=== PATIENT | female | born 1985 | race Caucasian/White ===

== ENCOUNTER → 2023-08-02 09:18 | Outpatient (REF) | payer BC, SELFPAY | LOC: WDC 09:18 | PROVIDERS: ATTENDING PHYSICIAN Obstetrics & Gynecology; FAMILY PHYSICIAN Nurse Practitioner Family | DX: N63.12 Unspecified lump in the right breast, upper inner quadrant (principal) | CPT/HCPCS: 76642; 77062; 77066 ==

== ENCOUNTER → 2023-08-10 08:32 | Outpatient (REF) | payer BC, SELFPAY ==
--- NOTE | 2023-08-10 14:05 | OID.BR.INTR ---
OID Breast Navigator - Initial
- -
Date of Contact: 08/10/23
Met with patient. Patient given written information on navigator services and support services available at [facility]. Will follow up as needed per protocol.
== END ==
LOC: WDC 08:32
PROVIDERS: ATTENDING PHYSICIAN Obstetrics & Gynecology; FAMILY PHYSICIAN Nurse Practitioner Family
DX: N63.12 Unspecified lump in the right breast, upper inner quadrant (principal)
CPT/HCPCS: 88305; 19083; 77065; 88341; 88342; 88360; A4648

== ENCOUNTER → 2023-08-21 16:38 | Outpatient (REF) | payer BC, SELFPAY | LOC: MRI 3T 16:38 | PROVIDERS: ATTENDING PHYSICIAN Surgery; FAMILY PHYSICIAN Nurse Practitioner Family | DX: C50.411 Malignant neoplasm of upper-outer quadrant of right female breast (principal); Z17.0 Estrogen receptor positive status [ER+] | CPT/HCPCS: 77049; A9585 ==

== ENCOUNTER → 2023-08-25 08:39 | Outpatient (REF) | payer BC, SELFPAY | LOC: RAD 08:39 | PROVIDERS: ATTENDING PHYSICIAN Surgery; FAMILY PHYSICIAN Nurse Practitioner Family | DX: C50.411 Malignant neoplasm of upper-outer quadrant of right female breast (principal); Z17.0 Estrogen receptor positive status [ER+] | CPT/HCPCS: 71260; 74177; Q9967 ==

== ENCOUNTER 2023-10-11 06:08 | Day surgery (SDC) | payer BC, SELFPAY ==
[2023-10-03 14:15] VITALS: BMI 36.5
[2023-10-10 09:17] LABS: % Basophils 0.4 % (0-2); % Eosinophils 2.5 % (0-6); % Immature Granulocytes 0.2 % (0-0.5); % Lymphocytes 39.4 % (20.5-51.1); % Monocytes 8.7 % (1.7-9.3); % Neutrophils 48.8 % (42.2-75.2); Absolute Eosinophils 0.1 10^3/uL (0-0.7); Absolute Lymphocytes 1.9 10^3/uL (1.2-3.4); Absolute Monocytes 0.4 10^3/uL (0.1-0.6); Absolute Neutrophils 2.3 10^3/uL (1.4-6.5); Mean Corp Hgb Conc. 34.2 g/dL (33.0-37.0); Mean Corpuscular Hgb 30.9 pg (27.0-31.0); Mean Corpuscular Volume 90.3 fL (81.0-99.0); Mean Platelet Volume 9.4 fL (7.4-10.4); Nucleated Red Blood Cells % 0 %; Platelet Count 296 10^3/uL (130-400); Red Blood Cell Count 4.21 10^6/uL (4.20-5.40); Red Cell Dist. Width 12.8 % (11.5-14.5); White Blood Cell Count 4.7 10^3/uL (4.8-10.8)
[2023-10-10 10:01] LABS: ALT (SGPT) 18 U/L (0-35); AST (SGOT) 23 U/L (14-36); Albumin 4.2 g/dl (3.5-5.0); Alkaline Phosphatase 62 U/L (38-126); Blood Urea Nitrogen 16 mg/dl (7-17); Calcium 9.2 mg/dl (8.4-10.2); Carbon Dioxide 25 mmol/L (22-30); Chloride 103 mmol/L (98-107); Estimated Creatinine Clearance 101 ml/min; Glucose 95 mg/dl (70-99); Potassium 4.4 mmol/L (3.5-5.1); Sodium 138 mmol/L (135-145); Total Bilirubin 0.8 mg/dl (0.2-1.3); Total Protein 6.7 g/dl (6.3-8.2); eGFR > 60.00
[2023-10-10 10:14] LABS: Prealbumin (Transthyretin) 26.7 mg/dl (17.6-36.0)
[2023-10-10 10:27] LABS: Vitamin D, 25-OH*** 27.8 ng/mL (30-80)
[2023-10-11] VITALS (16 sets, daily range): BP systolic 0–150; BP diastolic 48–77; BMI 36.5
[2023-10-11] MEDS: TYLENOL 1000 MG PO ×3 (06:38→23:05)
[2023-10-11] MEDS: LOVENOX 40 MG SC (06:39)
[2023-10-11] MEDS: NORMOSOL-R/PLASMALYTE-A 1000 IV (06:39)
--- NOTE | 2023-10-11 07:24 | W.SUR.PREOP ---
Pre-Operative Surgical Note
-
I have examined this patient prior to the performance of the scheduled procedure.
The patient's condition is unchanged from the time of the current History and
Physical and the patient is able to undergo the scheduled procedure.
--- NOTE | 2023-10-11 11:27 | W.IMMPOSTOP ---
Surgical Immed Post Op Note
-
Primary Surgeon: Anil
Assisting Surgeon: None
Pre-op Diagnosis: Right breast ca
Post-op Diagnosis: Same
Procedure Performed: Right nipple sparing mastectomy, sentinel node mapping and biopsy
Anesthesia Type: GET
Specimen / Cultures: Right breast, sentinel nodes
Estimated Blood Loss: 20cc
Complications: None
Operative Findings: Neg nodes
[place] Node Bx Breast Cancer
[place] Node Bx Breast Cancer
Operation performed with curative intent: Yes
Tracer(s) to ID [place] Nodes in Non-Neoadjuvant setting: Dye and Radioactive Tracer
Tracer(s) to ID Sentinal Nodes in the Neoadjuvant Setting: N/A
All nodes at end of dye-filled Lymphatic Channel removed: Yes
All Significantly Radioactive Nodes were removed: Yes
All Palpably Suspicious Nodes were Removed: Yes
Bx Proven Pos Nodes Marked Prior to Chemo ID'd & Removed: N/A
--- NOTE | 2023-10-11 12:06 | W.IMMPOSTOP ---
Surgical Immed Post Op Note
-
Primary Surgeon: KALPANA Callahan MD
Assisting Surgeon:
Pre-op Diagnosis: right breast cancer
Post-op Diagnosis: same
Procedure Performed: right immediate breast reconstruction with tissue train examiner, ADM wrap after skin sparing mastectomy
Anesthesia Type: General
Specimen / Cultures: Per Dr. Ma
Estimated Blood Loss: 10 cc
Complications: none
Operative Findings: as expected, train examiner filled to 300
--- NOTE | 2023-10-11 12:06 | OR.RPT ---
Operative Report
Operative Report
Date of surgery: 10/11/2023
Surgeon: KALPANA Callahan MD
Preoperative diagnosis: right Breast cancer
Postoperative diagnosis: Same
Procedure:
1. Immediate breast reconstruction with prepectoral tissue physician assistant psychiatry
2. Total anterior coverage technique for ADM wrap
Complications: None
Anesthesia: General
EBL: 10 cc
Senior Care Provider size: 14 cm
Indications for procedure: Patient was referred to me by Dr. Ma with a recent diagnosis of right breast cancer. She was planned to undergo unilateral mastectomy. We discussed her options for breast reconstruction at length including implant
based and autologous options. The patient opted for immediate reconstruction with tissue expanders. She understands that the final reconstruction will be staged. We also discussed the use of ADM and spy angiography. Risks include reconstructive
failure, capsular contracture, infection, delayed wound healing, mastectomy skin flap necrosis, hematoma, seroma and need for repeat procedure. Patient understood these risks and desired to proceed. Consents were signed accordingly.
Procedure in detail: Patient was identified the preoperative area and the surgical site was confirmed to be the breast. All questions were answered and consents were confirmed. Patient was then sat upright and normal anatomical landmarks were
marked including midline and inframammary fold. Patient was then taken back to the operating room placed supine on the table. She was prepped and draped in the usual sterile fashion using ChloraPrep solution. A Tapia catheter was placed. A
timeout for patient safety was performed was confirmed that bilateral SCDs were in place and preoperative antibiotics administered. The procedure began with Dr. Ma first performing the mastectomy. Her op report will be dictated separately.
When I entered the procedure, the mastectomy had been completed. As such I inspected the wound bed of the chest wall and ensured meticulous hemostasis. The base width was measured and appropriate tissue physician assistant psychiatry was selected. Two 6 x 16 sheets of
Cortiva ADM were soaked in dilute Betadine solution and passed through the skin graft mesher on carrier of 1-1.5. This construct was then draped around the tissue physician assistant psychiatry in a total anterior coverage technique. The physician assistant psychiatry ADM construct was then
sutured to the chest wall with a series of 2-0 silk sutures. Pectoralis and intercostal blocks were performed with Marcaine. 2 drains were then placed in the preaxial area line with a long subcutaneous tunnel and sutured in place with 2-0 Prolene
sutures. The wound was irrigated with double antibiotic solution and dilute Betadine. The mastectomy incisions were then closed with a series of 3-0 Vicryl's in the deep subcutaneous tissues followed by 3-0 and 4-0 Monocryl's in the deep dermis
and superficial skin.
The wounds were dressed accordingly and a supportive bra was placed. The patient was extubated taken to the PACU for further care. All counts were correct at the end the case was performed out complication.
[2023-10-11] MEDS: ZOFRAN 4 MG IV (12:17)
[2023-10-11] MEDS: DILAUDID 0.5 MG IV (12:47)
--- NOTE | 2023-10-11 13:48 | PTCARENOTE ---
1330: Patient arrived to 2S. Full head to toe assessment completed. R breast with 4x4 tegaderm clean dry and intact. Surgical bra clean dry and intact. 2 DICK drains on R chest. Patient on RA with SpO2 greater than 92%. Call dunn within reach and bed
in lowest position.
[2023-10-11] MEDS: NEURONTIN 100 MG PO ×2 (16:08→23:04)
[2023-10-11] MEDS: ANCEF 5 IV ×2 (16:08→23:05)
[2023-10-11] MEDS: ULTRAM 50 MG PO (19:42)
[2023-10-12 03:00] VITALS: BP 110/65
[2023-10-12] MEDS: ULTRAM 50 MG PO (04:09)
[2023-10-12] MEDS: TYLENOL 1000 MG PO ×2 (06:04→12:16)
--- NOTE | 2023-10-12 06:42 | PTCARENOTE ---
Pt awake intermittently t/o the night. Pt ambulating to bathroom as needed. Pt has menses, alaln pads provided. Pt reports pain at tolerable level, see MAR for pain medication administration. vital signs stable. Will continue to monitor.
[2023-10-12 07:00] VITALS: BP 102/63
[2023-10-12] MEDS: COLACE 100 MG PO (08:54)
[2023-10-12] MEDS: NEURONTIN 100 MG PO (08:54)
[2023-10-12] MEDS: FLUSH (NSS) 2 FLUSH IV (08:54)
[2023-10-12] MEDS: ANCEF 5 IV (08:54)
[2023-10-12 09:33] LABS: Hematocrit 34.7 % (37.0-47.0); Hemoglobin 12.1 g/dL (12.0-16.0)
[2023-10-12 09:55] LABS: Blood Urea Nitrogen 9 mg/dl (7-17); Calcium 8.9 mg/dl (8.4-10.2); Carbon Dioxide 24 mmol/L (22-30); Chloride 106 mmol/L (98-107); Estimated Creatinine Clearance 114 ml/min; Glucose 106 mg/dl (70-99); Potassium 3.9 mmol/L (3.5-5.1); Sodium 139 mmol/L (135-145); eGFR > 60.00
[2023-10-12 11:00] VITALS: BP 120/71
--- NOTE | 2023-10-12 11:56 | W.PN.PLAS ---
Today's Communication
-
discharge to home with VN
Follow up Monday in office
Progress Note
Subjective Data
Doing well, pain well controlled
Denies SOB
Objective Data
Vital Signs
Temp Pulse Resp BP Pulse Ox
97.8 F 83 18 102/63 98
10/12/23 07:00 10/12/23 07:00 10/12/23 07:00 10/12/23 07:00 10/12/23 09:00
Intake and Output
10/11/23 10/12/23 10/13/23
06:59 06:59 06:59
Intake Total 2480 / 2480
Output Total 1750 / 1750
Balance 730 / 730
Intake:
Oral fluids 2280 / 2280
IV fluids (Total) 200 / 200
normosol 200 / 200
Output:
Drain Output (Total) 300 / 300
Right Chest Alex-Hairston A 250 / 250
Right Chest Alex-Hairston B 50 / 50
Urine, Tapia 300 / 300
Urine, Voided 1150 / 1150
Other:
Number of approximated MODERATE 3
amounts of urine
PEX:
NAD
No increased WOB
R breast with boilermaker loftsman in place
No undrained fluid collection
Drains serosang with appropriate output
dressings in place
Lab Results
10/12/23 09:22
10/12/23 09:22
Review of Systems
Review of Systems: Satisfactory Appetite
Assessment / Plan
s/p R mstx and immediate boilermaker loftsman recon
Doing well
CM for VN
Drain mgmt
Multimodal po pain control
Home today
--- NOTE | 2023-10-12 11:59 | W.DCSUMMARY ---
Discharge Summary
Discharge Data
Date of Admission: 10/11/23
Date of Discharge: 10/12/23
-
Pending Results: No
Hospital Course
Admitted following right mastectomy and immediate marketing business analyst reconstruction.
Routine postoperative course.
Discharged POD 1 with pain well controlled, tolerating PO, ambulatory and voiding. VN and close follow up arranged.
Discharge Plan
-
Patient Disposition: Home (Routine Discharge)
Discharge Diagnosis/Procedures: s/p mastectomy and immediate marketing business analyst reconstruction
Condition: Good
Diet: Regular
Activity: No strenuous activity
Additional Activity: Limit ROM, no heavy lifting >10 lbs
Driving Restrictions: Not until seen by your Dr
Bathing Restrictions: OK to Shower
Other Services: VN
Referrals:
Gelacio Garcia CRNP [Family Provider] -
Prescriptions:
New
acetaminophen [Tylenol Extra Strength] 500 mg Tablet
1,000 mg PO Q6 14 Days Qty: 112 0RF
docusate sodium 100 mg Capsule
100 mg PO BID 30 Days Qty: 60 0RF
tramadol 50 mg Tablet
50 mg PO Q6HPRN PRN (Reason: moderate pain) 14 Days Qty: 30 0RF
gabapentin 100 mg Capsule
100 mg PO TID 30 Days Qty: 90 2RF
diazepam 5 mg Tablet
5 mg PO TIDPRN PRN (Reason: Muscle Spasms) 21 Days Qty: 42 0RF
cefadroxil 500 mg capsule
500 mg PO BID Qty: 42 0RF
Continued
escitalopram oxalate [Lexapro] 10 mg Tablet
10 mg PO HS
Held
ibuprofen 600 MG tablet
600 mg PO Q4HPRN PRN (Reason: mild pain) Qty: 30 0RF
Hold Instructions: Resume on 10/16/23.
Discontinued
acetaminophen 325 MG tablet
650 mg PO Q4HPRN PRN (Reason: moderate pain) 0RF
Discharge Orders:
Discharge Patient (As Directed); Ordered 10/12/23
Ordered By: Volodymyr Callahan
Discharge Date and Time
Print Language: YORUBA
[2023-10-12] MEDS: VALIUM 5 MG PO (12:34)
--- NOTE | 2023-10-12 12:52 | CM ---
Met with patient and parents at the bedside; initial assessment and case management consult completed
Pharmacy verified: [facility] @ [address] [place] [address]
Patient lives with parents in a multilevel home; 2 steps to enter; 13 steps between floors; powder room on 1st floor; 2nd floor bath has tub w/shower; bedroom on 2nd floor
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
NO DME
NO SNF history
Parents will provide transportation home
Plan: discharge to home today with home health services from [facility]
--- NOTE | 2023-10-12 12:55 | PTCARENOTE ---
pt provided with Drain management written education. pt educated on proper technique for drain management, stripping of tubing, emptying and recording of output. pt verbalized understanding.
--- NOTE | 2023-10-12 13:34 | VNURNOTE ---
Home Health Liaison met with patient and mom and dad at bedside to discuss [facility] nurse visits, schedule and homebound status. Patient is agreeable and understands that visits at home will be 2-3 x per week to assess and teach medical management.
Patient confirms she has been taught drain emptying and care. Mom and Dad supportive and able to help. [facility] brochure provided with contact information. Patient is aware that [facility] will contact them for start of care in 1-2 days after discharge from
. [facility] Intake aware of referral.
[facility] referral completed in Care Port.
== END 2023-10-12 14:15 | disposition home or self-care (01) ==
LOC: SDS 06:08
PROVIDERS: ATTENDING PHYSICIAN Surgery Plastic and Reconstructive Surgery; FAMILY PHYSICIAN Nurse Practitioner Family; REFERRING PHYSICIAN Surgery
DX: C50.411 Malignant neoplasm of upper-outer quadrant of right female breast (principal); C77.3 Secondary and unspecified malignant neoplasm of axilla and upper limb lymph nodes
CPT/HCPCS: 19357; 19303; 38525; 38900; 15777; 88305; 88307; 88332; 36415; 80048; 80053; 82306; 84134; 85014; 85018; 85025; 88331; 88333; 88334; 88341; 88342; 93005; C1789; L8000; Q4100

== ENCOUNTER 2023-11-21 06:23 | Day surgery (SDC) | payer BC, SELFPAY ==
[2023-11-21] VITALS (7 sets, daily range): BP systolic 122–135; BP diastolic 66–81; BMI 36.6
[2023-11-21] MEDS: NSS 1000 IV (13:38)
[2023-11-21] MEDS: NORMOSOL-R/PLASMALYTE-A 1000 IV (14:25)
== END 2023-11-21 17:43 | disposition home or self-care (01) ==
LOC: SDS 06:23
PROVIDERS: ATTENDING PHYSICIAN Surgery
PROC: 0JH63WZ Insertion of Totally Implantable Vascular Access Device into Chest Subcutaneous Tissue and Fascia, Percutaneous Approach (ICD-10-PCS; 2023-11-21)
PROC: 02HV33Z Insertion of Infusion Device into Superior Vena Cava, Percutaneous Approach (ICD-10-PCS; 2023-11-21)
DX: C50.411 Malignant neoplasm of upper-outer quadrant of right female breast (principal)
CPT/HCPCS: 36561; 71045; 76000; C1788

== ENCOUNTER → 2023-12-01 10:47 | Outpatient (REF) | payer BC, SELFPAY | LOC: RCS 10:47 | PROVIDERS: ATTENDING PHYSICIAN Internal Medicine Hematology & Oncology; FAMILY PHYSICIAN Nurse Practitioner Family | DX: C50.211 Malignant neoplasm of upper-inner quadrant of right female breast (principal) | CPT/HCPCS: 93306 ==

== ENCOUNTER → 2024-01-30 15:02 | Outpatient (REF) | payer OTHER, SELFPAY | LOC: RCS 15:02 | PROVIDERS: ATTENDING PHYSICIAN Internal Medicine Cardiovascular Disease; FAMILY PHYSICIAN Nurse Practitioner Family | DX: Z85.3 Personal history of malignant neoplasm of breast (principal); Z51.11 Encounter for antineoplastic chemotherapy | CPT/HCPCS: 93306 ==

== ENCOUNTER → 2024-02-05 13:07 | Outpatient (REF) | payer OTHER, SELFPAY ==
[2024-02-05 16:00] LABS: ALT (SGPT) 36 U/L (0-35); AST (SGOT) 32 U/L (14-36); Albumin 4.4 g/dl (3.5-5.0); Alkaline Phosphatase 71 U/L (38-126); Blood Urea Nitrogen 8 mg/dl (7-17); Calcium 9.4 mg/dl (8.4-10.2); Carbon Dioxide 28 mmol/L (22-30); Chloride 105 mmol/L (98-107); Glucose 90 mg/dl (70-99); Potassium 4.3 mmol/L (3.5-5.1); Sodium 140 mmol/L (135-145); Total Bilirubin 0.4 mg/dl (0.2-1.3); Total Protein 6.9 g/dl (6.3-8.2); eGFR > 60.00
[2024-02-05 16:05] LABS: % Basophils 0.2 % (0-2); % Eosinophils 0.2 % (0-6); % Immature Granulocytes 0.4 % (0-0.5); % Monocytes 11.4 % (1.7-9.3); % Neutrophils 67.8 % (42.2-75.2); Absolute Lymphocytes 0.9 10^3/uL (1.2-3.4); Absolute Monocytes 0.5 10^3/uL (0.1-0.6); Absolute Neutrophils 3.2 10^3/uL (1.4-6.5); Hematocrit 33.2 % (37.0-47.0); Mean Corp Hgb Conc. 33.1 g/dL (33.0-37.0); Mean Corpuscular Hgb 30.2 pg (27.0-31.0); Mean Corpuscular Volume 91.2 fL (81.0-99.0); Mean Platelet Volume 9.4 fL (7.4-10.4); Nucleated Red Blood Cells % 0 %; Platelet Count 333 10^3/uL (130-400); Red Blood Cell Count 3.64 10^6/uL (4.20-5.40); Red Cell Dist. Width 16.3 % (11.5-14.5); White Blood Cell Count 4.7 10^3/uL (4.8-10.8)
== END ==
LOC: HWLAB 13:07
PROVIDERS: ATTENDING PHYSICIAN Internal Medicine Hematology & Oncology; FAMILY PHYSICIAN Internal Medicine
DX: C50.211 Malignant neoplasm of upper-inner quadrant of right female breast (principal); K64.9 Unspecified hemorrhoids
CPT/HCPCS: 36415; 80053; 85025

== ENCOUNTER 2024-02-19 13:05 | Outpatient (RCR) | payer OTHER, SELFPAY | END 2024-02-19 23:59 | disposition home or self-care (01) | LOC: RPT 13:05 | PROVIDERS: ATTENDING PHYSICIAN Internal Medicine Cardiovascular Disease; FAMILY PHYSICIAN Nurse Practitioner Family | DX: C50.211 Malignant neoplasm of upper-inner quadrant of right female breast (principal); I97.2 Postmastectomy lymphedema syndrome; L90.5 Scar conditions and fibrosis of skin; R53.0 Neoplastic (malignant) related fatigue; R42 Dizziness and giddiness; M62.81 Muscle weakness (generalized) | CPT/HCPCS: 97110; 97112; 97140; 97163; 97530 ==

== ENCOUNTER 2024-03-18 11:09 | Outpatient (RCR) | payer OTHER, SELFPAY | END 2024-03-18 23:59 | disposition home or self-care (01) | LOC: RPT 11:09 | PROVIDERS: ATTENDING PHYSICIAN Internal Medicine Cardiovascular Disease; FAMILY PHYSICIAN Nurse Practitioner Family | DX: C50.211 Malignant neoplasm of upper-inner quadrant of right female breast (principal); I97.2 Postmastectomy lymphedema syndrome; L90.5 Scar conditions and fibrosis of skin; R53.0 Neoplastic (malignant) related fatigue; R42 Dizziness and giddiness; M62.81 Muscle weakness (generalized) | CPT/HCPCS: 97110; 97112; 97530 ==

== ENCOUNTER 2024-04-15 11:16 | Outpatient (RCR) | payer OTHER, SELFPAY | END 2024-04-15 13:44 | disposition home or self-care (01) | LOC: RPT 11:16 | PROVIDERS: ATTENDING PHYSICIAN Internal Medicine Cardiovascular Disease; FAMILY PHYSICIAN Nurse Practitioner Family | DX: C50.211 Malignant neoplasm of upper-inner quadrant of right female breast (principal); I97.2 Postmastectomy lymphedema syndrome; L90.5 Scar conditions and fibrosis of skin; R53.0 Neoplastic (malignant) related fatigue; R42 Dizziness and giddiness; M62.81 Muscle weakness (generalized) | CPT/HCPCS: 97110; 97112; 97530 ==

== ENCOUNTER 2024-04-16 06:17 | Day surgery (SDC) | payer OTHER, SELFPAY ==
[2024-04-01 11:36] LABS: Hematocrit 37.3 % (37.0-47.0); Hemoglobin 12.4 g/dL (12.0-16.0); Mean Corp Hgb Conc. 33.2 g/dL (33.0-37.0); Mean Corpuscular Hgb 30.8 pg (27.0-31.0); Mean Corpuscular Volume 92.6 fL (81.0-99.0); Mean Platelet Volume 9.9 fL (7.4-10.4); Platelet Count 255 10^3/uL (130-400); Red Blood Cell Count 4.03 10^6/uL (4.20-5.40); Red Cell Dist. Width 13.2 % (11.5-14.5); White Blood Cell Count 4.7 10^3/uL (4.8-10.8)
[2024-04-01 13:07] VITALS: BMI 36.7
[2024-04-01 13:14] LABS: ALT (SGPT) 39 U/L (0-35); AST (SGOT) 27 U/L (14-36); Albumin 4.9 g/dl (3.5-5.0); Alkaline Phosphatase 85 U/L (38-126); Blood Urea Nitrogen 14 mg/dl (7-17); Calcium 9.3 mg/dl (8.4-10.2); Carbon Dioxide 26 mmol/L (22-30); Chloride 102 mmol/L (98-107); Estimated Creatinine Clearance > 125 ml/min; Glucose 84 mg/dl (70-99); Potassium 4.2 mmol/L (3.5-5.1); Sodium 138 mmol/L (135-145); Total Bilirubin 0.6 mg/dl (0.2-1.3); Total Protein 7.3 g/dl (6.3-8.2); eGFR > 60.00
[2024-04-01 18:44] LABS: Prealbumin (Transthyretin) 28.1 mg/dl (17.6-36.0)
[2024-04-01 18:45] LABS: Vitamin D, 25-OH*** 26.8 ng/mL (30-80)
[2024-04-16] VITALS (10 sets, daily range): BP systolic 7–123; BP diastolic 55–75; BMI 36.7
[2024-04-16] MEDS: NORMOSOL-R/PLASMALYTE-A 1000 IV (12:30)
[2024-04-16] MEDS: TYLENOL 1000 MG PO (12:41)
[2024-04-16] MEDS: LOVENOX 40 MG SC (12:42)
--- NOTE | 2024-04-16 15:38 | W.IMMPOSTOP ---
Surgical Immed Post Op Note
-
Primary Surgeon: Anil
Assisting Surgeon: None
Pre-op Diagnosis: Right breast ca
Post-op Diagnosis: Right breast ca
Procedure Performed: removal left portacath, right axillary dissection
Anesthesia Type: LMA
Specimen / Cultures: Right axillary content
Estimated Blood Loss: 10cc
Complications: None
Operative Findings: None
--- NOTE | 2024-04-16 15:39 | OR.RPT ---
Operative Report
Operative Report
Procedure date: 04/16/24
Surgeon: Anil
Procedure: Removal of left portacath; right axillary dissection
Pre-Op DX: Right breast ca
Post-Op DX: right breast ca
The patient is a 39-year-old female with node positive right breast carcinoma and underwent right mastectomy with implant-based reconstruction. Her postoperative pathology report revealed positive sentinel nodes therefore she presents for
completion axillary dissection as a standard of care. Additionally she had completed adjuvant chemotherapy and her left Port-A-Cath will be removed. The patient presented to same-day surgical unit and verified site and procedure. She was prepped.
DVT and antibiotic prophylaxis were provided and she was transferred to the operating room. In the supine position general anesthesia was induced. Left chest and right breast axilla and right arm were prepped and draped in the usual sterile
fashion. An appropriate timeout was performed by all staff members.
Attention was first turned to the port where tissues were anesthetized with 1% lidocaine plain. The previous insertion incision was entered sharply with a 15 blade. Dissection was carried down to the port pocket using the cautery. The catheter
was removed from the vascular tract and was intact. Vascular tract was suture-ligated with 3-0 plain gut. Port was removed and hemostasis was maintained with the cautery. Marcaine 0.5% plain was instilled the wound was closed using simple
interrupted 3-0 plain on subcutaneous tissue and a running subcuticular 4 Monocryl on skin.
Then attention was turned to the axilla where a curvilinear incision was made inferior to the hairline. Dissection was carried through the clavipectoral fascia and scar tissue using the cautery. A level 2 axillary dissection was performed taking
care not to operate on her above the axillary vein. Any larger vessels were tied with 3-0 silk. An intercostal brachial nerve was able to be preserved throughout its course. Long thoracic and thoracodorsal nerves were preserved throughout the
course and contents were removed superior to inferior direction. These were sent for permanent analysis. Hemostasis was verified and at this juncture plastic surgery entered to perform a possible lymphovenous bypass to decrease risk of lymphedema.
All sponge needle and instrument counts were correct at this point.
([id number])
--- NOTE | 2024-04-16 16:16 | W.IMMPOSTOP ---
Surgical Immed Post Op Note
-
Primary Surgeon: KALPANA Callahan MD
Assisting Surgeon:
Pre-op Diagnosis: Right breast cancer, history of right mastectomy
Post-op Diagnosis: Same
Procedure Performed: Right lymphovenous bypass, axilla; removal of right tissue cp bleacher operator replacement with permanent silicone gel implant
Anesthesia Type: General
Specimen / Cultures: Per Dr. Ma
Estimated Blood Loss: 10 cc
Complications: None
Operative Findings: As expected
--- NOTE | 2024-04-16 16:16 | OR.RPT ---
Operative Report
Operative Report
Date of surgery: 04/16/2024
Surgeon: KALPANA Callahan MD
Preoperative diagnosis:
1. History of right breast cancer
2. 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
Postoperative diagnosis: Same
Procedure:
1. Right axillary lymphatic venous bypass
2. Right breast removal of tissue drain technician replacement with permanent silicone gel implant
3. Spy angiography
Complications: None
EBL: 10 cc
Anesthesia: General
Indication for procedure: Patient is a 39-year-old female with a history of right sided breast cancer. She underwent mastectomy and required adjuvant chemotherapy as well as postoperative radiation. An axillary dissection was recommended to be
performed by Dr. Ma. As such, a plan was made to perform prophylactic lymphatic venous bypass in attempts to reduce the risk of lymphedema. Additionally we would use the opportunity to remove the tissue drain technician and place a permanent silicone
gel prosthesis in the right breast prior to initiation of radiation therapy. We reviewed the risks at length including lymphedema, she will require a compression garment. We also discussed the risk of radiation following implant placement
including capsular contracture, infection, malposition. Additional risks were reviewed including wrinkling and rippling, rupture, hematoma, seroma and need for repeat procedure. She understood and consented accordingly
Procedure in detail: Patient was identified preoperatively and the surgical site was confirmed to be the right breast and axilla. Plan was made to utilize the inframammary scar in order to remove the drain technician and replace with a silicone gel
implant. All questions were answered and consents were confirmed. Patient was taken back to the operating placed upon the table. Anesthesia was induced and the patient was prepped with ChloraPrep solution and draped in the usual sterile fashion.
Dr. Ma started the procedure with the removal of the left chest wall port as well as the right sided axillary dissection. Her op report will be dictated separately. When I entered the procedure, the right axillary dissection had been
completed. I begun with a lymphatic venous bypass first by injecting 2 cc of methylene blue and 2 cc of ICG into the dermis of the right medial arm. With massage and an appropriate mount of time, direct visualization as well as spy angiography
allowed me to identify a small transected lymphatic vessel. A nearby vein was also identified. Using loupe magnification, an anastomosis was performed using 8-0 nylon. Confirmation of the flow of lymph fluid was performed following the
anastomosis. No additional starburst transected lymphatic vessels were noted. Adequate lymphatic flow was present in the superior aspect of the dissection. Following this a drain was placed in the right axilla and this was closed in layers using
3-0 and 4-0 Monocryl. Attention was then drawn to the right breast where the inframammary incision was made with a 15 blade. Dissection continued with Bovie electrocautery to the implant capsule. A capsulotomy was performed the tissue drain technician
was removed. A total of 600 cc of fluid was then aspirated from the tissue drain technician. As such a 700 cc highly cohesive silicone gel implant was selected. This was placed into the right implant pocket under sterile conditions using a no touch
technique and a Theodore funnel. The wound bed was irrigated with double antibiotic solution and dilute Betadine. The wound was then closed in layers with 2-0 Vicryl followed by 3-0 and 4-0 Monocryl. Patient tolerated the procedure well, was
performed out complication. All counts were correct at the end the case. She was extubated taken the PACU for further care.
[2024-04-16] MEDS: ROXICODONE 5 MG PO (17:59)
== END 2024-04-16 18:18 | disposition home or self-care (01) ==
LOC: SDS 06:17
PROVIDERS: ATTENDING PHYSICIAN Surgery; FAMILY PHYSICIAN Nurse Practitioner Family; OTHER PHYSICIAN Surgery Plastic and Reconstructive Surgery
DX: C50.411 Malignant neoplasm of upper-outer quadrant of right female breast (principal); Z85.3 Personal history of malignant neoplasm of breast; Z90.11 Acquired absence of right breast and nipple; Z45.2 Encounter for adjustment and management of vascular access device; Z17.0 Estrogen receptor positive status [ER+]
CPT/HCPCS: 11970; 38745; 88307; 36415; 80053; 82306; 84134; 85027; 88341; 88342; 93005; C1729; C1789; L8000

== ENCOUNTER 2024-06-13 10:02 | Outpatient (RCR) | payer OTHER, SELFPAY | END 2024-06-13 23:59 | disposition home or self-care (01) | LOC: RPT 10:02 | PROVIDERS: ATTENDING PHYSICIAN Internal Medicine Cardiovascular Disease; FAMILY PHYSICIAN Nurse Practitioner Family | DX: I97.2 Postmastectomy lymphedema syndrome (principal); C50.211 Malignant neoplasm of upper-inner quadrant of right female breast; L90.5 Scar conditions and fibrosis of skin; R53.0 Neoplastic (malignant) related fatigue; Z90.11 Acquired absence of right breast and nipple; Z73.6 Limitation of activities due to disability | CPT/HCPCS: 97110; 97112; 97140; 97163; 97530 ==

== ENCOUNTER 2024-07-17 12:13 | Outpatient (RCR) | payer OTHER, SELFPAY | END 2024-07-17 23:59 | disposition home or self-care (01) | LOC: RPT 12:13 | PROVIDERS: ATTENDING PHYSICIAN Internal Medicine Cardiovascular Disease; FAMILY PHYSICIAN Nurse Practitioner Family | DX: I97.2 Postmastectomy lymphedema syndrome (principal); C50.211 Malignant neoplasm of upper-inner quadrant of right female breast; L90.5 Scar conditions and fibrosis of skin; R53.0 Neoplastic (malignant) related fatigue; Z73.6 Limitation of activities due to disability; Z90.11 Acquired absence of right breast and nipple | CPT/HCPCS: 97110; 97112; 97140; 97530 ==

== ENCOUNTER 2024-08-19 10:06 | Outpatient (RCR) | payer OTHER, SELFPAY | END 2024-08-19 23:59 | disposition home or self-care (01) | LOC: RPT 10:06 | PROVIDERS: ATTENDING PHYSICIAN Internal Medicine Cardiovascular Disease; FAMILY PHYSICIAN Nurse Practitioner Family | DX: I97.2 Postmastectomy lymphedema syndrome (principal); C50.211 Malignant neoplasm of upper-inner quadrant of right female breast; L90.5 Scar conditions and fibrosis of skin; R53.0 Neoplastic (malignant) related fatigue; Z73.6 Limitation of activities due to disability; Z90.11 Acquired absence of right breast and nipple | CPT/HCPCS: 97110; 97164; 97530 ==

== ENCOUNTER 2024-09-10 13:07 | Outpatient (RCR) | payer OTHER, SELFPAY | END 2024-09-10 23:59 | disposition home or self-care (01) | LOC: RPT 13:07 | PROVIDERS: ATTENDING PHYSICIAN Internal Medicine Cardiovascular Disease; FAMILY PHYSICIAN Nurse Practitioner Family | DX: I97.2 Postmastectomy lymphedema syndrome (principal); C50.211 Malignant neoplasm of upper-inner quadrant of right female breast; L90.5 Scar conditions and fibrosis of skin; R53.0 Neoplastic (malignant) related fatigue; Z73.6 Limitation of activities due to disability; Z90.11 Acquired absence of right breast and nipple | CPT/HCPCS: 97110; 97140; 97530 ==

== ENCOUNTER → 2024-09-25 13:16 | Outpatient (REF) | payer OTHER, SELFPAY | LOC: WDC 13:16 | PROVIDERS: ATTENDING PHYSICIAN Radiology Radiation Oncology; FAMILY PHYSICIAN Internal Medicine | DX: Z85.3 Personal history of malignant neoplasm of breast (principal) | CPT/HCPCS: 77063; 77067 ==

== ENCOUNTER 2024-09-30 13:24 | Outpatient (RCR) | payer OTHER, SELFPAY | END 2024-09-30 23:59 | disposition home or self-care (01) | LOC: RPT 13:24 | PROVIDERS: ATTENDING PHYSICIAN Internal Medicine Cardiovascular Disease; FAMILY PHYSICIAN Nurse Practitioner Family | DX: I97.2 Postmastectomy lymphedema syndrome (principal); C50.211 Malignant neoplasm of upper-inner quadrant of right female breast; L90.5 Scar conditions and fibrosis of skin; R53.0 Neoplastic (malignant) related fatigue; Z73.6 Limitation of activities due to disability; N94.10 Unspecified dyspareunia; Z90.11 Acquired absence of right breast and nipple | CPT/HCPCS: 97110; 97530 ==

== ENCOUNTER 2024-10-09 06:08 | Day surgery (SDC) | payer OTHER, SELFPAY ==
[2024-10-09] MEDS: CELEBREX 200 MG PO (06:57)
[2024-10-09] MEDS: TYLENOL 1000 MG PO (06:57)
[2024-10-09] MEDS: NORMOSOL-R/PLASMALYTE-A 1000 IV (07:04)
[2024-10-09 07:09] VITALS: BP 111/70
[2024-10-09 08:05] VITALS: BP 112/70
--- NOTE | 2024-10-09 08:13 | W.IMMPOSTOP ---
Addendum entered and electronically signed by Floyd Castillo MD 10/09/24 13:48:
updated patient in recovery room and mother over the phone
Original Note:
Surgical Immed Post Op Note
-
Primary Surgeon: Floyd Castillo MD
Assisting Surgeon: Hai Storm MD
Pre-op Diagnosis: Chronic anal fissure, skin tag
Post-op Diagnosis: Chronic anal fissure, skin tag
Procedure Performed: Exam under anesthesia, Botox injection of internal anal sphincter, fissurectomy, anal biopsy, skin tag excision, bilateral pudendal nerve block
Anesthesia Type: Sedation with local
Specimen / Cultures: Anal fissure margin, posterior anal tag
Estimated Blood Loss: 5 mL
Complications: None
Operative Findings: Small superficial PML fissure, about 8 mm x 3 mm; sphincter tone was increased, only able to accommodate the medium hill�Oden; biopsied fissure margins and achieved hemostasis with electrocautery, cauterized fissure base;
excised sentinel pile; performed pudendal nerve block with 5 mL of local bilaterally; left Surgicel within the anal canal
[2024-10-09 08:15] VITALS: BP 125/74
--- NOTE | 2024-10-09 08:16 | OR.RPT ---
Operative Report
Operative Report
DATE OF OPERATION: 10/09/2024
SURGEON: Floyd Castillo MD
PREOPERATIVE DIAGNOSIS: Chronic anal fissure, anal skin tag
POSTOPERATIVE DIAGNOSIS: Chronic anal fissure, anal skin tag
OPERATION: Exam under anesthesia, botox injection of internal anal sphincter, fissurectomy, excision of anal skin tag, bilateral pudendal nerve block
ASSISTANTS:
1. Hai Storm MD
ANESTHESIA: Sedation with local
ESTIMATED BLOOD LOSS: 5 mL
FINDINGS:
1. Small superficial posterior midline fissure about 8 mm x 4 mm
2. Small pedunculated sentinel pile
3. Incidental findings: No concerning internal hemorrhoids, small circumferential anal papilla
SPECIMENS:
1. Anal fissure margin
2. Posterior anal skin tag
DRAINS: None
COMPLICATIONS: None
INDICATIONS: The patient is a 39-year-old female with PMH of breast cancer s/p chemo and radiation who presented with anal pain and bleeding and was diagnosed with an anal fissure. After multiple courses of nonoperative measures with
nifedipine/lidocaine cream, her symptoms and fissure persisted. Therefore, the patient was recommended to have surgery. The operation was discussed with the patient in detail, including the risks, benefits and alternatives. Risks described
included, but not limited to bleeding, infection, urinary retention, damage to nearby structures such as the anal sphincter, fecal incontinence, recurrence, and anesthetic risks. The patient understood and agreed to proceed. The consent was signed
and placed in the chart.
PROCEDURE IN DETAIL: The patient was taken to the operating room. Sequential compression devices were placed bilaterally. The patient was placed on the operating table in prone position. Sedation was commenced without complication. Two seat belts
were secured around the legs and upper back. The buttocks were taped apart. The perineum was prepped and draped in the usual fashion. A time-out was performed verifying the correct patient, procedure, operative site, positioning, and special
equipment.
Local anesthesia used was a mixture of 30 mL of 0.25% Marcaine with epinephrine, 30mL of 1% lidocaine plain and 0.6 mg of dexamethasone. 40 mL was injected perianally at the beginning of the case. The anorectal exam was performed assessing all four
quadrants of the anal canal using Hill-Oden retractors in progressively increasing size. There was a small somewhat superficial anal fissure in the posterior midline, measuring approximately 8 mm x 4 mm. Just off to the left of the apex of the
fissure, there was a pedunculated sentinel pile, only 4 to 5 mm in length. The internal sphincter was noted to be mildly hypertonic. With the medium Hill�Oden, there was superficial tearing of the anoderm, consistent with hypertonicity.
Therefore, the large Hill�Oden was not used.
Biopsies were taken from the edges using a forceps to elevate the tissue and a metzenbaum scissors to excise the tissue, taking care to avoid injury to the external sphincter. The fissure was fulgurated with electrocautery to encourage wound
healing. 100 units of Botox was drawn up with 2 mL of sterile saline. Using a 30-gauge needle, the Botox was injected in 4 quadrants in equal portions, specifically 25 units in the anterior midline, right lateral quadrant, posterior midline and
left lateral quadrant. Care was taken to avoid incidental injection into the external sphincter. The sentinel pile was excised using Metzenbaum scissors. Hemostasis was achieved with electrocautery.
The remaining 20 mL of local were injected. 5 mL was injected bilaterally for a pudendal nerve block. 10 mL was injected around the surgical site and perianally. Hemostasis was reassessed once more using the small Hill-Oden and was confirmed.
Surgicel was placed in the operative site prophylactically.
At this point, the procedure was complete. All needle, sponge and instrument counts were correct. The patient tolerated the procedure well and was transferred to the recovery room in stable condition with gauze dressing in place secured with silk
tape.
Of note, Hai Storm MD, assistant loan processor, was necessary during this procedure for traction, countertraction, and exploratory purposes. I was present for the entire duration of the case.
DICTATED BY: Floyd Castillo MD
[2024-10-09 08:30] VITALS: BP 136/88
[2024-10-09 08:45] VITALS: BP 125/79
[2024-10-09 09:15] VITALS: BP 134/61
== END 2024-10-09 09:40 | disposition home or self-care (01) ==
LOC: SDS 06:08
PROVIDERS: ATTENDING PHYSICIAN Surgery
DX: K60.1 Chronic anal fissure (principal); K64.4 Residual hemorrhoidal skin tags; K62.89 Other specified diseases of anus and rectum
CPT/HCPCS: 46200; 88304; 88342; J0585

== ENCOUNTER → 2024-10-15 08:11 | Outpatient (REF) | payer OTHER, SELFPAY | LOC: RAD 08:11 | PROVIDERS: ATTENDING PHYSICIAN Internal Medicine Hematology & Oncology; PRIMARYCARE PHYSICIAN Internal Medicine | DX: C50.211 Malignant neoplasm of upper-inner quadrant of right female breast (principal); K64.9 Unspecified hemorrhoids | CPT/HCPCS: 71260; 74177; 78306; A9503; Q9967 ==

== ENCOUNTER 2024-10-22 15:07 | Outpatient (RCR) | payer OTHER, SELFPAY | END 2024-10-23 11:23 | disposition home or self-care (01) | LOC: RPT 15:07 | PROVIDERS: ATTENDING PHYSICIAN Internal Medicine Cardiovascular Disease; FAMILY PHYSICIAN Nurse Practitioner Family | DX: I97.2 Postmastectomy lymphedema syndrome (principal); C50.211 Malignant neoplasm of upper-inner quadrant of right female breast; L90.5 Scar conditions and fibrosis of skin; R53.0 Neoplastic (malignant) related fatigue; Z73.6 Limitation of activities due to disability; N94.10 Unspecified dyspareunia; Z90.11 Acquired absence of right breast and nipple | CPT/HCPCS: 97110; 97530 ==

== ENCOUNTER → 2024-10-31 13:07 | Outpatient (REF) | payer OTHER, SELFPAY | LOC: WDC 13:07 | PROVIDERS: ATTENDING PHYSICIAN Radiology Radiation Oncology | DX: R92.333 Mammographic heterogeneous density, bilateral breasts (principal) | CPT/HCPCS: 76641 ==

== ENCOUNTER → 2025-01-31 07:24 | Outpatient (REF) | payer OTHER, SELFPAY | LOC: RCS 07:24 | PROVIDERS: ATTENDING PHYSICIAN Internal Medicine Cardiovascular Disease; FAMILY PHYSICIAN Internal Medicine | DX: Z51.11 Encounter for antineoplastic chemotherapy (principal); Z85.3 Personal history of malignant neoplasm of breast | CPT/HCPCS: 93306; 93356 ==